=== PATIENT | female | born 1935 | race Caucasian/White ===

== ENCOUNTER 2016-05-15 12:01 | Emergency (ER) | payer OTHER, MEDICARE ==
[2016-05-15 12:19] VITALS: BP 162/87; PULSE 80; RESP 18; O2SAT 99
[2016-05-15 12:46] LABS: % IMMATURE GRANULYOCYTES 0.3 % (0.0-1.1); ABSOLUTE IMMATURE GRANULOCYTES 0.03 10^3/uL (0.00-0.10); ADD DIFF? NO; ADD MORPH? NO; ADD SCAN? NO; ATYPICAL LYMPHOCYTE FLAG 0 (0-99); FRAGMENT RBC FLAG 0 (0-99); HEMATOCRIT 40.1 % (38.0-47.0); HEMOGLOBIN 14.2 g/dL (12.6-16.3); LEFT SHIFT FLG 0 (0-99); LIPEMIA HEMOLYSIS FLAG 90 (0-99); MEAN CELL HEMOGLOBIN 32.2 pg (27.9-34.1); MEAN CELL HEMOGLOBIN CONCENTR. 35.4 g/dL (32.4-36.7); MEAN CELL VOLUME 90.9 fL (81.5-99.8); MEAN PLATELET VOLUME 8.8 fL (8.7-11.7); PLATELET CLUMPS FLAG 0 (0-99); PLATELET COUNT 446 10^3/uL (150-400); RED BLOOD CELL COUNT 4.41 10^6/uL (4.18-5.33); RED CELL DISTRIBUTION WIDTH 14.5 % (11.5-15.2)
--- NOTE | 2016-05-15 13:01 | CPEKG ---
Heart Rate: 71 RR Interval: 845 P-R Interval: 196 QRSD Interval: 72 QT Interval: 404 QTC Interval: 439 P [place]: 80 QRS [place]: 8 T Wave [place]: 19 EKG Severity - ABNORMAL ECG - EKG Impression: SINUS RHYTHM EKG Impression: LEFT VENTRICULAR HYPERTROPHY Electronically Signed By: Odilon Resendez 15-May-2016 17:55:41
[2016-05-15 13:07] LABS: ALANINE AMINOTRANSFERASE 34 IU/L (9-52); ALBUMIN 4.2 g/dL (3.5-5.0); ALKALINE PHOSPHATASE 99 IU/L (38-126); ANION GAP 15 mEq/L (8-16); ASPARTATE AMINOTRANSFERASE 36 IU/L (14-46); BILIRUBIN,TOTAL 0.6 mg/dL (0.1-1.4); CALCIUM 9.6 mg/dL (8.5-10.4); CARBON DIOXIDE 27 mEq/l (22-31); CHLORIDE 92 mEq/L (97-110); CREATININE 0.6 mg/dL (0.6-1.0); GLOMERULAR FILTRATION RATE > 60; GLUCOSE 89 mg/dL (70-100); POTASSIUM 4.5 mEq/L (3.5-5.2); SODIUM 134 mEq/L (134-144); TOTAL PROTEIN 7.5 g/dL (6.3-8.2)
[2016-05-15 13:19] LABS: TROPONIN I < 0.012 ng/mL (0-0.034)
[2016-05-15] MEDS ORDERED: NS 500 ML IV ONE (13:22)
[2016-05-15] MEDS ORDERED: ASPIRIN 81 MG CHEWABLE TAB ONE (13:22)
[2016-05-15 13:23] LABS: COLOR YELLOW; LEUKOCYTE ESTERASE,URINE NEGATIVE (NEGATIVE); NITRITE,URINE POSITIVE (NEGATIVE); PH,URINE 6.5 (5.0-7.5)
[2016-05-15 13:35] LABS: BACTERIA 4+ /hpf (NONE SEEN); RBC,URINE 0-1 /hpf (0-3)
[2016-05-15] MEDS ORDERED: methylPREDNISolone SOD SUCC 40 MG/ML VIAL IVP ONE (13:38)
[2016-05-15] MEDS ORDERED: IOPAMIDOL (ISOVUE 370) 100 ML BTL IV ONE (13:48)
--- NOTE | 2016-05-15 15:32 | UCPHY ---
H & P Patient Type: Established Chief Complaint Nursing Narrative: passed out at home on Sunday. Here today from [facility] Time Seen by Provider: 05/15/16 12:29 HPI/ROS: This patient was referred to us by family practitioner Dr. lipscomb across the [place] with concerns over the patient's recent syncope. The patient explains that she was at home on Sunday night and after eating dinner consisting of fish she developed nausea and feeling of lightheadedness. She went to the bathroom and had a normal bowel movement but then felt lightheaded and had a brief syncopal episode. She did bump her forehead on the floor but denies any headache. Since the syncope she reports feeling more fatigued than usual and came in for evaluation. She noted no antecedent symptoms other than what is mentioned in HPI. ROS: No recent fevers or chills. No other constitutional symptoms besides the fatigue. HEENT: No vision changes. She reports no nasal congestion recently. No sore throat. Pulmonary: No recent coughing. No pleuritic pain. Cardiovascular: She reports no heart palpitations. No chest pain. No lightheadedness. No lower extremity swelling. GI: No recent diarrhea. No constipation. No abdominal pain. : She has noticed any urinary symptoms recently. Musculoskeletal: She reports a bruise to her left arm from a fall but denies any significant pain from that. She is pointing to her forearm. as she mentions this. 10 point ROS is otherwise negative. Source: Patient, RN/MD Exam Limitations: No limitations - Medical/Surgical History Hx Asthma: No Hx Chronic Respiratory Disease: No Hx Diabetes: No Hx Cardiac Disease: No Hx Renal Disease: No Hx Cirrhosis: No Hx Alcoholism: No Hx HIV/AIDS: No Hx Splenectomy or Spleen Trauma: No Other PMH: PANCREATIC CA, BILAT MASTECTOMIES, NO STICKS RT ARM, EMPHYSEMA - Family History Significant Family History: No pertinent family hx - Social History Smoking Status: Former smoker Alcohol Use: Rarely Drug Use: None Additional Social History: She lives alone. - Physical Exam Exam: Physical exam: Vital signs are normal General: Patient is in no acute distress. Pleasant 78-year-old female appears younger than her stated age. HEENT: Is no external evidence of trauma on exam except for a contusion to the left forehead with no underlying bony step-off or significant hematoma. Eyes: Pupils are equal and reactive to light. Extraocular motions are intact. Optic fundi: Clear with no papilledema or hemorrhage. Nose atraumatic. Ears: Clear bilaterally with no hemotympanum. Oropharynx: No dental trauma or malocclusion. No intraoral lacerations. Neck: Trachea is midline with no stridor. The patient has no midline neck tenderness and retains a full range of motion without increase in pain. Lungs: Mild rales at the left base. Otherwise clear to auscultation bilaterally. Cardiac: Regular rate and rhythm no murmur gallop or rub. No peripheral edema. Chest: Nontender. Abdomen: Soft nontender no organomegaly Back: Nontender. No CVA tenderness Extremities: Atraumatic except for left forearm contusion with no significant tenderness associated with this. No deformity. Full range of motion maintain without pain Neuro: GCS of 15. Cranial nerves II through XII intact. Cerebellar exam is normal as judged by symmetric rapid hand movements bilaterally. No pronator drift. No sensory or motor deficits are appreciated. Initial differential diagnosis: Visit vagal syncope, post micturition syncope, rule out coronary syndrome, minor head injury, contusion, UTI, P Constitutional: Initial Vital Signs Heart Rate 80 05/15/16 12:17 Respiratory Rate 18 05/15/16 12:17 Blood Pressure 162/87 H 05/15/16 12:17 O2 Sat (%) 99 05/15/16 12:17 O2 Delivery Mode Room Air Allergies/Adverse Reactions: iodine [Iodine] Allergy (Intermediate, Verified 05/15/16 12:16) morphine [Morphine] Allergy (Intermediate, Verified 05/15/16 12:16) NSAIDS (Non-Steroidal Anti-Inflamma [Nsaids] Allergy (Intermediate, Verified 12:16) promethazine [Promethazine] Allergy (Intermediate, Verified 05/15/16 12:16) Sulfa (Sulfonamide Antibiotics) Allergy (Intermediate, Verified 05/15/16 12:16) Home Medications: Medication Instructions Recorded Diovan 09/26/13 Synthroid 09/26/13 Cephalexin [Keflex (*)] 500 mg PO TID #15 cap 05/15/16 Cephalexin [Keflex Oral Liquid] 500 mg PO TID #1 btl 05/15/16 Medical Decision Making - Diagnostics EKG Interpretation: 12 lead EKG reviewed from the feeling practitioner's office-sinus rhythm with LVH findings. Our EKG performed at 12:59 p.m. indication syncope Sinus rhythm 71 Intervals: Normal throughout [place]: Normal LVH by voltage criteria. Patient has a T inversion in V2 similar to finding in her EKG from feeling practitioner's office. Overall assessment sinus rhythm with LVH Imaging: CT angio chest rule out PE indication syncope with mildly elevated D-dimer reveals no PE. Old granulomatous disease is noted by our radiologist and evidence of prior smoking. She has mild scarring at the lung bases. Otherwise normal ED Course/Re-evaluation: IV normal saline 500 cc bolus Patient is pretreated with Solu-Medrol and Benadryl for her CT angio given previous contrast reaction. However she tolerated IV contrast with pretreatment in the past without difficulty. Patient felt well while here with no further symptoms. Her urinalysis reveals significant bacteria and positive nitrites though no significant leukocytes. However will treat this with culture pending. I counseled regarding this. Her troponin is normal. Other labs are unremarkable except for mild leukocytosis. She has a contusion to her forehead but did not think she has significant head injury. I find no evidence to suggest a stroke clinically. Discussion: After workup, and I think this patient had MS or coronary syndrome. 2 days out from the then she has normal troponin. Discuss possibility of admission for further workup the patient prefers to be discharged home. I spoke with Jewels mid-level practitioner with [facility] who will help facilitate close follow-up for further evaluation with Cardiology. - Data Points Laboratory Results: Laboratory Results 05/15/16 12:35 05/15/16 12:35 05/15/16 05/15/16 05/15/16 13:20 12:35 12:35 WBC RBC Hgb Hct MCV MCH MCHC RDW Plt Count MPV Neut % (Auto) Lymph % (Auto) [place] % (Auto) Eos % (Auto) Baso % (Auto) Nucleat RBC Rel Count Absolute Neuts (auto) Absolute Lymphs (auto) Absolute Monos (auto) Absolute Eos (auto) Absolute Basos (auto) Absolute Nucleated RBC Immature Gran % Immature Gran # D-Dimer 0.61 ug/mLFEU H ug/mLFEU (0.00-0.50) Sodium 134 mEq/L mEq/L (134-144) Potassium 4.5 mEq/L mEq/L (3.5-5.2) Chloride 92 mEq/L L mEq/L (97-110) Carbon Dioxide 27 mEq/l mEq/l (22-31) Anion Gap 15 mEq/L mEq/L (8-16) BUN 13 mg/dL mg/dL (7-23) Creatinine 0.6 mg/dL mg/dL (0.6-1.0) Estimated GFR > 60 Glucose 89 mg/dL mg/dL (70-100) Calcium 9.6 mg/dL mg/dL (8.5-10.4) Total Bilirubin 0.6 mg/dL mg/dL (0.1-1.4) AST 36 IU/L IU/L (14-46) ALT 34 IU/L IU/L (9-52) Alkaline Phosphatase 99 IU/L IU/L (38-126) Troponin I < 0.012 ng/mL ng/mL (0-0.034) Total Protein 7.5 g/dL g/dL (6.3-8.2) Albumin 4.2 g/dL g/dL (3.5-5.0) Urine Color YELLOW Urine Appearance CLEAR Urine pH 6.5 (5.0-7.5) Ur Specific [place] 1.010 (1.002-1.030) Urine Protein NEGATIVE (NEGATIVE) Urine Ketones NEGATIVE (NEGATIVE) Urine Blood NEGATIVE (NEGATIVE) Urine Nitrate POSITIVE H (NEGATIVE) Urine Bilirubin NEGATIVE (NEGATIVE) Urine Urobilinogen 0.2 EU EU (0.2-1.0) Ur Leukocyte Esterase NEGATIVE (NEGATIVE) Urine RBC 0-1 /hpf /hpf (0-3) Urine WBC 1-3 /hpf /hpf (0-3) Ur Epithelial Cells 2+ /lpf H /lpf (NONE-1+) Urine Bacteria 4+ /hpf H /hpf (NONE SEEN) Urine Glucose NEGATIVE (NEGATIVE) 05/15/16 12:35 WBC 10.55 10^3/uL H 10^3/uL (3.80-9.50) RBC 4.41 10^6/uL 10^6/uL (4.18-5.33) Hgb 14.2 g/dL g/dL (12.6-16.3) Hct 40.1 % % (38.0-47.0) MCV 90.9 fL fL (81.5-99.8) MCH 32.2 pg pg (27.9-34.1) MCHC 35.4 g/dL g/dL (32.4-36.7) RDW 14.5 % % (11.5-15.2) Plt Count 446 10^3/uL H 10^3/uL (150-400) MPV 8.8 fL fL (8.7-11.7) Neut % (Auto) 67.6 % % (39.3-74.2) Lymph % (Auto) 17.9 % % (15.0-45.0) [place] % (Auto) 10.9 % % (4.5-13.0) Eos % (Auto) 2.4 % % (0.6-7.6) Baso % (Auto) 0.9 % % (0.3-1.7) Nucleat RBC Rel Count 0.0 % % (0.0-0.2) Absolute Neuts (auto) 7.14 10^3/uL H 10^3/uL (1.70-6.50) Absolute Lymphs (auto) 1.89 10^3/uL 10^3/uL (1.00-3.00) Absolute Monos (auto) 1.15 10^3/uL H 10^3/uL (0.30-0.80) Absolute Eos (auto) 0.25 10^3/uL 10^3/uL (0.03-0.40) Absolute Basos (auto) 0.09 10^3/uL 10^3/uL (0.02-0.10) Absolute Nucleated RBC 0.00 10^3/uL 10^3/uL (0-0.01) Immature Gran % 0.3 % % (0.0-1.1) Immature Gran # 0.03 10^3/uL 10^3/uL (0.00-0.10) D-Dimer Sodium Potassium Chloride Carbon Dioxide Anion Gap BUN Creatinine Estimated GFR Glucose Calcium Total Bilirubin AST ALT Alkaline Phosphatase Troponin I Total Protein Albumin Urine Color Urine Appearance Urine pH Ur Specific [place] Urine Protein Urine Ketones Urine Blood Urine Nitrate Urine Bilirubin Urine Urobilinogen Ur Leukocyte Esterase Urine RBC Urine WBC Ur Epithelial Cells Urine Bacteria Urine Glucose Medications Given: Discontinued Medications Diphenhydramine HCl (Benadryl Injection) 25 mg IVP EDNOW ONE Stop: 05/15/16 13:40 Last Admin: 03/20/17 14:03 Dose: 25 mg Sodium Chloride (Ns) 500 mls @ 0 mls/hr IV ONCE ONE PRN Reason: Wide Open Stop: 05/15/16 13:23 Last Admin: 05/15/16 13:44 Dose: 500 mls Methylprednisolone Sodium Succinate (Solu-Medrol) 80 mg IVP EDNOW ONE Stop: 05/15/16 13:39 Last Admin: 05/15/16 13:55 Dose: 80 mg Departure - Departure Disposition: Home, Routine, Self-Care Clinical Impression: Cystitis Syncope Qualifiers: Syncope type: unspecified Qualified Code(s): R55 - Syncope and collapse Hypertension Qualifiers: Hypertension type: essential hypertension Qualified Code(s): I10 - Essential ( primary) hypertension Condition: Good Instructions: Syncope (ED) Additional Instructions: Diagnosis: Syncope 2. Bladder infection Plan: Drink plenty fluids Keflex antibiotic Call Dr. Cortez-litigation examiner arrange follow-up appointment for this week for further evaluation Also follow-up tomorrow with Dr. Bellamy. Go to the emergency department if he develops significant lightheadedness, chest pain or any other concerning symptoms. Referrals: Oriana Bellamy MD [Primary Care Provider] - As per Instructions Mukul Reyna MD [Non Staff Provider (MD)] - As per Instructions Prescriptions: Cephalexin [Keflex Oral Liquid] 500 mg PO TID #1 btl Cephalexin [Keflex (*)] 500 mg PO TID #15 cap - PQRS PQRS Measurement: 134: Depression screening and followup, PRIME MD-PHQ2 (12 years and older) Over the last 2 weeks, how often have you been bothered by any of the following problems? 1. Feeling down, depressed, or hopeless? 2. Little interest or pleasure in doing things? Patient answered no to both 1 and 2 130: Documentation of medications. Reviewed all patient medications, doses, route and frequency. 226: Do you smoke? [No.] 47: 65 and older: Advanced care planning. Patient has an advanced directive 51: 18 years old and older with diagnosis of COPD, spirometry performance. NA 52: 18 years old and older with COPD and symptoms of COPD or FEV1<60% predicted prescribed a B Agonist. NA
== END 2016-05-15 15:47 | disposition home or self-care (01) ==
LOC: CED 12:01
DX: R55 Syncope and collapse (principal); N30.90 Cystitis, unspecified without hematuria; I10 Essential (primary) hypertension; Z87.891 Personal history of nicotine dependence
CPT/HCPCS: 71275; 93005; 96361; 96374; 96375; G0463; J1200; Q9967; 80053-PO; 81003-PO; 81015-PO; 84484-PO; 85025-PO; 85378-PO; 93010-PO; 99215-PO

== ENCOUNTER → 2017-01-24 | Outpatient (CLI) | payer OTHER, MEDICARE | LOC: CIMAGING 10:38 | PROVIDERS: ATTEND Family Medicine | DX: J98.4 Other disorders of lung (principal); I51.7 Cardiomegaly | CPT/HCPCS: 71020-PO ==

== ENCOUNTER → 2017-06-01 | Day surgery (SDC) | payer OTHER, MEDICARE | END | disposition home or self-care (01) | LOC: FIMAGING 14:51 | PROVIDERS: ATTEND Internal Medicine Infectious Disease | DX: N39.0 Urinary tract infection, site not specified (principal); A49.8 Other bacterial infections of unspecified site | CPT/HCPCS: 36569; 77001; C1751 ==

== ENCOUNTER 2017-06-26 19:06 | Emergency (ER) | payer OTHER, MEDICARE ==
--- NOTE | 2017-06-26 19:47 | EDPHY ---
H & P Stated Complaint: Unable to urinate x12 hrs Time Seen by Provider: 06/26/17 19:39 HPI/ROS: CHIEF COMPLAINT: Urinary retention HISTORY OF PRESENT ILLNESS: The patient is a an 81-year-old female who comes to the emergency department complaining of urinary retention for the last 12 hr. She has had trouble with urinary retention ever since shoulder surgery 3 weeks ago. They had to leave the catheter in for 5 days until she followed up with a urologist Dr. Galeano. The catheter was removed however she developed a catheter associated urine infection that was 1st treated with meropenem and then tobramycin. Since this episode the patient is extremely afraid of having a new catheter placed. When she saw the urologist they wanted to place another catheter which she refused. They placed her on an anti spasmodic. She has a follow-up scope for next week. She however has had trouble with retention during the day while she is active but when she sleeps at night she has been able to relax in urinate. She has not had any fevers. She has not had any flank pain. She denies having suprapubic pain but does complain of fullness. REVIEW OF SYSTEMS: Constitutional: denies: chills, fever, recent illness, recent injury EENTM: denies: blurred vision, double vision, nose congestion Respiratory: denies: cough, shortness of breath Cardiac: denies: chest pain, irregular heart rate, lightheadedness, palpitations Gastrointestinal/Abdominal: denies: abdominal pain, diarrhea, nausea, vomiting, blood streaked stools Genitourinary: See HPI Musculoskeletal: denies: joint pain, muscle pain Skin: denies: lesions, rash, jaundice, bruising Neurological: denies: headache, numbness, paresthesia, tingling, dizziness, weakness Hematologic/Lymphatic: denies: blood clots, easy bleeding, easy bruising Immunologic/allergic: denies: HIV/AIDS, transplant EXAM: GENERAL: Well-appearing, well-nourished and in no acute distress. HEAD: Atraumatic, normocephalic. EYES: Pupils equal round and reactive to light, extraocular movements intact, sclera anicteric, conjunctiva are normal. ENT: TMs normal, nares patent, oropharynx clear without exudates. Moist mucous membranes. NECK: Normal range of motion, supple without lymphadenopathy or JVD. LUNGS: Breath sounds clear to auscultation bilaterally and equal. No wheezes rales or rhonchi. HEART: Regular rate and rhythm without murmurs, rubs or gallops. ABDOMEN: Soft, nontender, normoactive bowel sounds. No guarding, no rebound. No masses appreciated. BACK: No CVA tenderness, no spinal tenderness, step-offs or deformities EXTREMITIES: Normal range of motion, no pitting or edema. No clubbing or cyanosis. NEUROLOGICAL: Cranial nerves II through XII grossly intact. Normal speech, normal gait. 5/5 strength, normal movement in all extremities, normal sensation PSYCH: Normal mood, normal affect. SKIN: Warm, dry, normal turgor, no visible rashes or lesions. Source: Patient Exam Limitations: No limitations - Personal History Current Tetanus/Diphtheria Vaccine: Yes Current Tetanus Diphtheria and Acellular Pertussis (TDAP): Yes - Medical/Surgical History Hx Asthma: No Hx Chronic Respiratory Disease: No Hx Diabetes: No Hx Cardiac Disease: No Hx Renal Disease: No Hx Cirrhosis: No Hx Alcoholism: No Hx HIV/AIDS: No Hx Splenectomy or Spleen Trauma: No Other PMH: PANCREATIC CA, BILAT MASTECTOMIES, NO STICKS RT ARM, EMPHYSEMA, bilat knee replacement, R shoulder, L hip. - Family History Significant Family History: No pertinent family hx - Social History Smoking Status: Former smoker Alcohol Use: Sober Drug Use: None Constitutional: Initial Vital Signs Temperature (C) 36.6 C 06/26/17 19:16 Heart Rate 84 06/26/17 19:16 Respiratory Rate 18 06/26/17 19:16 Blood Pressure 156/78 H 06/26/17 19:16 O2 Sat (%) 96 06/26/17 19:16 O2 Delivery Mode Room Air Allergies/Adverse Reactions: iodine [Iodine] Allergy (Intermediate, Verified 05/15/16 12:16) morphine [Morphine] Allergy (Intermediate, Verified 05/15/16 12:16) NSAIDS (Non-Steroidal Anti-Inflamma [Nsaids] Allergy (Intermediate, Verified 12:16) promethazine [Promethazine] Allergy (Intermediate, Verified 05/15/16 12:16) Sulfa (Sulfonamide Antibiotics) Allergy (Intermediate, Verified 05/15/16 12:16) Home Medications: Medication Instructions Recorded Synthroid 50 mcg 09/26/13 Amlodipine Besylate 5 mg DAILY 06/02/17 Flovent Hfa 44 mcg 06/02/17 Meropenem 1 g 06/02/17 Premarin Vaginal Cream 0.5 g 06/02/17 Restasis 1 drop 06/02/17 Medical Decision Making ED Course/Re-evaluation: 7:50 p.m. patient is extremely afraid of having another catheter in but she does consent to have an in and out catheterization now. She will try and stay at home and rest more tomorrow and see if she is able to urinate. The urologist did give her anti spasmodic medications which she has been taking. If she again has trouble with retention she will return and will consent to a indwelling catheter at that time until she follows up with a urologist next week. 8:20 p.m. Wy[place] catheter was placed by nursing staff in successfully drained over 1000 cc of urine. This was removed and the patient was left to go home. I instructed her to return tomorrow if her symptoms did not improve. She understands and agrees with this plan. She refuses further treatment or testing. I will send her urine for culture just in case she starts to develop fever or pain or is infectious symptoms over the next few days. Differential Diagnosis: Partial list of the Differential diagnosis considered include but were not limited to; urinary retention, inflammation, urinary tract infection and although unlikely based on the history and physical exam, I also considered pyelonephritis, tumor. I discussed these differential diagnoses and the plan with the patient as well as the usual and expected course. The patient understands that the diagnosis is provisional and that in medicine we are not always correct and that further workup is often warranted. Usual and customary warnings were given. All of the patient's questions were answered. The patient was instructed to return to the emergency department should the symptoms at all worsen or return, otherwise to followup with the physician as we discussed. - Data Points Laboratory Results: 06/26/17 20:40 Urine Color GREEN Urine Appearance CLEAR Urine pH 7.0 (5.0-7.5) Ur Specific [place] <= 1.005 (1.002-1.030) Urine Protein NEGATIVE (NEGATIVE) Urine Ketones NEGATIVE (NEGATIVE) Urine Blood NEGATIVE (NEGATIVE) Urine Nitrate NEGATIVE (NEGATIVE) Urine Bilirubin NEGATIVE (NEGATIVE) Urine Urobilinogen 0.2 EU EU (0.2-1.0) Ur Leukocyte Esterase NEGATIVE (NEGATIVE) Urine RBC NONE SEEN /hpf /hpf (0-3) Urine WBC OCCASIONAL /hpf /hpf (0-3) Ur Epithelial Cells TRACE /lpf /lpf (NONE-1+) Urine Bacteria TRACE /hpf H /hpf (NONE SEEN) Urine Mucus TRACE /lpf /lpf (NONE-1+) Urine Glucose NEGATIVE (NEGATIVE) Departure - Departure Disposition: Home, Routine, Self-Care Clinical Impression: Urinary retention Condition: Fair Instructions: Acute Urinary Retention in Women (ED) Referrals: Oriana Bellamy MD [Primary Care Provider] - As per Instructions
[2017-06-26 20:33] VITALS: BP 146/95
== END 2017-06-26 20:46 | disposition home or self-care (01) ==
LOC: CED 19:06
PROC: 0T9B70Z Drainage of Bladder with Drainage Device, Via Natural or Artificial Opening (ICD-10-PCS; principal; 2017-06-26)
DX: R33.9 Retention of urine, unspecified (principal); Z85.07 Personal history of malignant neoplasm of pancreas; Z87.891 Personal history of nicotine dependence
CPT/HCPCS: 81003-PO; 81015-PO

== ENCOUNTER → 2017-07-20 | Outpatient (CLI) | payer OTHER, MEDICARE | LOC: CIMAGING 09:01 | PROVIDERS: ATTEND Physician Assistant Medical | DX: R32 Unspecified urinary incontinence (principal); N32.89 Other specified disorders of bladder; K31.9 Disease of stomach and duodenum, unspecified | CPT/HCPCS: 74176-PO ==

== ENCOUNTER → 2018-03-27 | Outpatient (CLI) | payer OTHER, MEDICARE | LOC: CIMAGING 14:49 | PROVIDERS: ATTEND Family Medicine | DX: J18.9 Pneumonia, unspecified organism (principal) | CPT/HCPCS: 71046-PO ==